=== PATIENT | female | born 1985 | race Caucasian/White ===

== ENCOUNTER 2018-11-07 08:45 | Inpatient (IN) ==
[2018-11-07] MEDS ORDERED: OXYTOCIN 30 UNITS/500 ML BAG IV PRN (09:33)
[2018-11-07 09:53] LABS: Hematocrit (blood only) 31.7 % (37-47); Hemoglobin 9.6 g/dL (12.0-16.0); Mean Corpuscular Volume 69.2 fL (80-100); Mean Platelet Volume 10.3 fL (7.4-10.4); Platelet Count 184 K/uL (130-400); RDW Standard Deviation 42.4 fL (36.4-46.3); Red Blood Count 4.58 M/uL (4.2-5.4); White Blood Count 8.96 K/uL (4.8-10.8)
[2018-11-07] MEDS: LACTATED RINGER'S 1,000 ML IV PRN ×3 (09:54→18:00)
[2018-11-07] MEDS ORDERED: BUPIVACAINE 0.25% 30 ML VIAL ONE (10:00)
[2018-11-07] MEDS ORDERED: ePHEDrine sulfate 50 MG/ML AMP ONE (10:00)
[2018-11-07] MEDS ORDERED: PENICILLIN G POTASSIUM 6 MU in DEXTROSE 5% 250 ML IV ONE (10:00)
[2018-11-07] MEDS ORDERED: fentaNYL citrate 100 MCG/2 ML VIAL ONE (10:01)
[2018-11-07] MEDS ORDERED: fentaNYL 2MCG/ML ROPIV 1.25MG/ML 100 ML BAG EPI ONE (10:01)
--- NOTE | 2018-11-07 10:18 | Anesthesiology Consultation ---
Date of Service November 07, 2018 Assessment & Plan Chart Review Chart Review: Acceptable Risk for Labor Epidural Consults Requested none ASA ASA2 Proposed Anesthesia Anesthesia Type: Labor Epidural Risk / Benefits Reviewed With: PT / POA / Parent / Guardian, Accepts Plan and Informed Consent Obtained History Height/Weight Height: 1.63 m Weight: 68.946 kg Allergies Allergy/AdvReac Type Severity Reaction Status Date / Time No Known Allergies Allergy Verified 11/07/18 02:21 Medications Home Medications Medication Instructions Recorded Confirmed Last Taken ferrous sulfate [iron] 325 mg PO DAILY 11/07/18 11/07/18 11/05/18 08:00 vit-iron fum-folic ac 1 tab PO DAILY 11/07/18 11/07/18 11/05/18 08:00 [ Vitamin] Active Medications Generic Name Dose Route Start Last Admin Trade Name Freq PRN Reason Stop Dose Admin Lactated Ringer's 1,000 mls @ 125 mls/hr 11/07/18 09:33 11/07/18 09:54 Lr IV 11/09/18 09:32 999 mls/hr .Q8H PRN Administration L&D Protocol Protocol Penicillin G Potassium 6 mu/ 262 mls @ 262 mls/hr 11/07/18 10:00 11/07/18 10:04 Dextrose IV 11/07/18 10:59 262 mls/hr 1000 ONE Administration NPO Date Last Intake of Fluids: 11/07/18 Time Last Intake of Fluids: 10:20 Date Last Intake of Solids: 11/06/18 Time Last Intake of Solids: 21:00 Exercise / Class Metabolic Activity II 4-5 Yardwork/Stairs/Walk up hill Past Surgical History No previous surgical history Past Anesthesia History No Family Hx of Anesthesia Complications No previous anesthesia history History of PONV No Hx of PONV (No previous anesthesia history) and No Hx of Motion Sickness Social History Smoking Status: Never smoker Hx Alcohol Use: No Hx Substance Use: No substance use type: does not use Review of Systems Respiratory: no dyspnea Cardiovascular: no chest pain Gastrointestinal: + nausea and + vomiting Physical Exam Vital Signs Last Vital Signs Temp 36.7 C 11/07/18 08:52 Pulse 88 11/07/18 08:52 Resp 20 11/07/18 08:52 BP 131/80 11/07/18 08:52 ENMT Mouth: no TMJ abnormality and no TMJ clicking Thyromental Distance: < 3.5 Finger Breadths Mallampati Class: III Neck normal visual inspection; neck extension not limited Respiratory Auscultation: lungs clear to auscultation bilaterally Cardiovascular Rate/Rhythm: regular rate and regular rhythm Heart Sounds: no murmur Vessels: no carotid bruit Psychiatric Orientation: alert and oriented x 3 Testing Laboratory Results 11/07/18 09:44
[2018-11-07 10:34] LABS: Mean Corpuscular Hgb Conc 30.3 g/dL (32-36)
[2018-11-07] MEDS ORDERED: ONDANSETRON INJ 2 MG/ML 2 ML VIAL IV PRN (10:52)
[2018-11-07] MEDS ORDERED: NALBUPHINE HCL INJ 10 MG/ML AMP IV PRN (10:52)
[2018-11-07] MEDS ORDERED: NALOXONE HCL 1 MG in SODIUM CHLORIDE 0.9% 1000ML 1,000 ML IV PRN (10:52)
[2018-11-07] MEDS ORDERED: ePHEDrine sulfate 50 MG/ML AMP IV PRN (10:52)
[2018-11-07] MEDS ORDERED: NALOXONE HCL 0.4 MG/1 ML VIAL/CARP IV PRN (10:52)
[2018-11-07] MEDS ORDERED: PROMETHAZINE HCL 12.5 MG in SODIUM CHLORIDE 0.9% 50 ML IV PRN (10:52)
[2018-11-07] MEDS ORDERED: DiphenhydrAMINE HCL 50 MG/ML VIAL IV PRN (10:52)
[2018-11-07] MEDS: fentaNYL 2MCG/ML ROPIV 1.25MG/ML 100 ML BAG EPI PRN ×2 (11:04→18:15)
[2018-11-07] MEDS: PENICILLIN G POTASSIUM 3 MU in DEXTROSE 5% 100 ML IV PRN ×3 (13:49→22:07)
--- NOTE | 2018-11-07 20:46 | Labor Progress Brief Note ---
Date of Service November 07, 2018 Subjective Comfortable with epidural. Accepts AROM. Assessment & Plan (1) Normal labor and delivery: Received GBS abx. Continue current management. Present on Admission?: Yes Physical Exam Physical Exam: FHT Cat 1 [place] Q5 irregular Cvx 8.5/100/0 AROM clear fluid Results & Data Vital Signs (Past 12 Hours) Vital Signs Temp Pulse Resp BP Pulse Ox 11/07/18 20:42 104 H 97 11/07/18 20:37 103 H 97 11/07/18 20:32 102 H 97 11/07/18 20:30 36.7 C 103 H 123/63 11/07/18 20:27 103 H 96 11/07/18 20:22 101 H 97 11/07/18 20:17 103 H 97 11/07/18 20:15 112 H 129/68 11/07/18 20:12 104 H 96 11/07/18 20:07 98 H 97 11/07/18 20:02 101 H 97 11/07/18 20:00 105 H 18 126/73 11/07/18 19:57 98 H 94 11/07/18 19:52 92 H 95 11/07/18 19:47 94 H 96 11/07/18 19:45 95 H 111/59 L 11/07/18 19:42 98 H 96 11/07/18 19:37 106 H 99 11/07/18 19:32 109 H 98 11/07/18 19:31 112 H 18 112/58 L 11/07/18 19:27 111 H 96 11/07/18 19:22 109 H 97 11/07/18 19:17 104 H 95 11/07/18 19:16 100 H 94 11/07/18 19:15 112 H 92/54 L 11/07/18 19:12 97 H 95 11/07/18 19:07 110 H 96 11/07/18 19:02 108 H 95 11/07/18 19:01 106 H 104/58 L 11/07/18 19:00 36.9 C 18 11/07/18 18:57 109 H 97 11/07/18 18:52 103 H 96 11/07/18 18:47 96 H 95 11/07/18 18:46 106 H 99/54 L 11/07/18 18:42 98 H 96 11/07/18 18:37 99 H 96 11/07/18 18:32 104 H 106/55 L 95 11/07/18 18:30 16 11/07/18 18:27 105 H 95 11/07/18 18:22 99 H 95 11/07/18 18:17 98 H 95 11/07/18 18:16 102 H 103/58 L 11/07/18 18:12 105 H 95 11/07/18 18:10 96 H 94 11/07/18 18:07 111 H 96 11/07/18 18:02 109 H 96 11/07/18 18:00 102 H 18 104/57 L 11/07/18 17:57 113 H 96 11/07/18 17:52 108 H 96 11/07/18 17:47 110 H 105/59 L 96 11/07/18 17:42 108 H 96 11/07/18 17:37 113 H 97 11/07/18 17:32 104 H 96 11/07/18 17:30 105 H 101/59 L 11/07/18 17:27 110 H 96 11/07/18 17:26 16 11/07/18 17:22 105 H 96 11/07/18 17:17 104 H 97 11/07/18 17:16 112 H 108/56 L 11/07/18 17:12 93 H 94 11/07/18 17:11 92 H 94 11/07/18 17:07 96 H 95 11/07/18 17:04 93 H 94 11/07/18 17:02 95 H 95 11/07/18 17:00 93 H 18 105/56 L 11/07/18 16:57 99 H 95 11/07/18 16:52 98 H 95 11/07/18 16:48 97 H 94 11/07/18 16:47 103 H 95 11/07/18 16:45 100 H 98/55 L 11/07/18 16:42 97 H 95 11/07/18 16:37 107 H 96 11/07/18 16:32 104 H 96 11/07/18 16:31 100 H 106/56 L 11/07/18 16:30 16 11/07/18 16:27 98 H 97 11/07/18 16:22 102 H 98 11/07/18 16:21 91 H 94 11/07/18 16:17 88 112/64 95 11/07/18 16:15 92 H 110/57 L 11/07/18 16:12 86 95 11/07/18 16:07 94 H 97 11/07/18 16:06 91 H 94 11/07/18 16:02 102 H 96 11/07/18 16:01 88 121/60 11/07/18 16:00 16 11/07/18 15:57 90 94 11/07/18 15:52 90 94 11/07/18 15:49 92 H 94 11/07/18 15:47 90 95 11/07/18 15:46 93 H 116/59 L 11/07/18 15:44 97 H 94 11/07/18 15:42 90 95 11/07/18 15:37 91 H 97 11/07/18 15:32 92 H 115/61 98 11/07/18 15:30 16 11/07/18 15:27 85 94 11/07/18 15:26 88 94 11/07/18 15:22 87 95 11/07/18 15:21 87 94 11/07/18 15:17 85 94 11/07/18 15:15 91 H 16 105/56 L 11/07/18 15:13 89 94 11/07/18 15:12 86 94 11/07/18 15:07 85 95 11/07/18 15:05 88 94 11/07/18 15:02 90 96 11/07/18 15:00 88 105/55 L 11/07/18 14:57 87 97 11/07/18 14:52 96 H 99 11/07/18 14:50 36.9 C 18 11/07/18 14:47 104 H 103/53 L 98 11/07/18 14:42 90 96 11/07/18 14:37 92 H 96 11/07/18 14:32 89 96 11/07/18 14:30 100 H 99/58 L 11/07/18 14:27 90 95 11/07/18 14:22 87 95 11/07/18 14:17 88 95 11/07/18 14:15 90 94/53 L 11/07/18 14:12 94 H 95 11/07/18 14:07 89 96 11/07/18 14:02 95 H 97 11/07/18 14:00 96 H 16 97/59 L 11/07/18 13:57 94 H 97 11/07/18 13:52 96 H 98 11/07/18 13:47 96 H 97 11/07/18 13:45 89 100/61 11/07/18 13:42 92 H 97 11/07/18 13:37 92 H 96 11/07/18 13:32 83 95 11/07/18 13:30 93 H 16 86/50 L 94 11/07/18 13:27 80 95 11/07/18 13:25 79 94 11/07/18 13:22 78 94 11/07/18 13:19 87 94 11/07/18 13:17 86 95 11/07/18 13:15 87 90/55 L 11/07/18 13:14 85 94 11/07/18 13:12 84 95 11/07/18 13:08 83 94 11/07/18 13:06 86 95 11/07/18 13:01 84 95 11/07/18 13:00 86 16 94/52 L 11/07/18 12:56 88 95 11/07/18 12:55 83 114/72 11/07/18 12:51 73 96 11/07/18 12:50 80 108/69 11/07/18 12:46 76 95 11/07/18 12:45 87 110/64 11/07/18 12:41 78 95 11/07/18 12:39 77 107/67 11/07/18 12:37 78 94 11/07/18 12:36 76 94 11/07/18 12:34 75 109/69 11/07/18 12:32 81 94 11/07/18 12:31 81 94 11/07/18 12:30 73 16 110/70 11/07/18 12:26 84 96 11/07/18 12:25 80 111/69 11/07/18 12:21 83 112/70 96 11/07/18 12:16 75 115/72 97 11/07/18 12:11 79 96 11/07/18 12:10 80 114/64 11/07/18 12:06 77 97 11/07/18 12:01 67 111/72 95 11/07/18 12:00 16 11/07/18 11:56 82 97 11/07/18 11:55 74 105/69 06/02/19 11:53 72 94 11/07/18 11:51 79 96 11/07/18 11:50 71 109/70 11/07/18 11:46 68 96 11/07/18 11:45 85 107/69 11/07/18 11:41 68 96 11/07/18 11:40 63 108/70 11/07/18 11:36 71 96 11/07/18 11:35 66 103/55 L 11/07/18 11:31 69 123/63 97 11/07/18 11:30 16 11/07/18 11:26 71 126/61 97 11/07/18 11:21 77 98 11/07/18 11:19 71 107/68 11/07/18 11:16 69 97 11/07/18 11:15 36.6 C 16 11/07/18 11:12 74 104/67 11/07/18 11:11 78 99 11/07/18 11:09 78 104/65 11/07/18 11:06 78 104/61 98 11/07/18 11:01 79 119/57 L 98 11/07/18 10:57 75 105/59 L 11/07/18 10:56 85 98 11/07/18 10:54 81 107/62 11/07/18 10:51 88 106/57 L 98 11/07/18 10:49 96 H 133/62 11/07/18 10:46 89 118/71 98 11/07/18 10:41 91 H 108/71 100 11/07/18 10:37 36.7 C 20 11/07/18 10:36 98 H 100 11/07/18 10:31 99 H 100 11/07/18 10:26 99 H 99 11/07/18 08:52 36.7 C 88 20 131/80
--- NOTE | 2018-11-08 00:15 | Procedure Note ---
Vaginal Delivery Summary Date of Service November 08, 2018
--- NOTE | 2018-11-08 00:18 | Procedure Note ---
Vaginal Delivery Summary Date of Service November 08, 2018 Patient pushed to deliver a viable male infant in OA position. A brief shoulder dystocia was resolved with Sussy and suprapubic pressure. The shoulders delivered followed by the rest of the baby easily. The cord was doubly clamped and cut, and the baby was taken to the warmer. It was noted to be moving all extremities well, and making respiratory efforts. The placenta delivered S/I/3VC. A 2nd degree laceration was repaired with vicryl suture in the usual manner. Fundus firm and lochia minimal after delivery.
[2018-11-08] MEDS ORDERED: DIPHTHERIA/TETANUS/PERTUSSIS 0.5 ML SYR/VIAL IM ONE (02:30)
[2018-11-08] MEDS ORDERED: ACETAMINOPHEN 325 MG TAB PO PRN (02:30)
[2018-11-08] MEDS ORDERED: BENZOCAINE 20% AER SPR 82.5 GM CAN EXT PRN (02:30)
[2018-11-08] MEDS ORDERED: HYDROCORTISONE ACETATE 25 MG SUPP PR PRN (02:30)
[2018-11-08] MEDS ORDERED: SUPERCREAM 0.870% 15 GM JAR EXT PRN (02:30)
[2018-11-08] MEDS ORDERED: OXYCODONE/ACETAMINOPHEN 5mg/325mg TAB PO PRN (02:30)
[2018-11-08] MEDS ORDERED: LACTATED RINGER'S 1,000 ML IV SCH (02:30)
--- NOTE | 2018-11-08 06:41 | Obstetrical Progress Note ---
Date of Service November 08, 2018 Assessment & Plan (1) Normal labor and delivery: Octavio is a 33yo F who presented at 40+3 now s/p PPD#1 - GBS+, O+, RI - Feels well today. Has not yet tried walking around, eating, or voiding. - Pain well controlled with ibuprofen 600mg Q4H PRN. - Routine care - After discharge will have [address] Walters. Subjective Ambulation: limited ambulation (has not been out of bed yet) Voiding: voiding difficulty (has not attempted to void since delivery last night) Passing Gas:: Yes Diet Tolerance:: regular diet (has not eaten yet) Lochia:: Moderate Feeding Type:: breast feeding (with bottle supplement) Current Pain Level(1-10): 0 Review of Systems Denies fever, chills, sweats Denies shortness of breath, difficulty breathing, chest pain, palpitations, chest pressure. Denies breast pain. Denies dysuria. Denies headache. Physical Exam Vital Signs (Past 24 Hours) Last Vital Signs Temp 36.8 C 11/08/18 03:00 Pulse 89 11/08/18 03:00 Resp 18 11/08/18 03:00 BP 110/65 11/08/18 03:00 Pulse Ox 98 11/08/18 03:00 General: Alert, oriented. No acute distress. Cardiac: Regular rate and rhythm, no murmurs/rubs/gallops. Respiratory: Clear to auscultation anterior and posteriorly, no wheezes/rales/rhonchi. No increased work of breathing. Symmetrical chest rise. No respiratory distress. Abdomen: Soft, nontender, nondistended. Bowel sounds present. Uterus: Uterine fundus firm, palpable at umbilicus. Lower Extremities: No lower extremity edema or swelling. No deep calf pain. Maciel's negative bilaterally. Resident Activity Tracking Resident Involvement: Resident Care Provided Care Provided: Adult Hospital Medicine
[2018-11-08] MEDS: IBUPROFEN 600 MG TAB PO PRN ×2 (06:50→20:57)
[2018-11-08] MEDS: PRENATAL VITAMIN 1 TAB PO SCH (08:43)
[2018-11-08] MEDS: DOCUSATE SODIUM 100 MG CAP PO SCH ×2 (08:43→20:57)
--- NOTE | 2018-11-08 09:10 | Anesthesiology Progress Note ---
Date of Service November 08, 2018 Anesthesia Post Procedure Vital Signs Vital Signs: Temp Pulse Pulse Resp BP BP Pulse Ox 11/08/18 08:00 36.6 C 82 18 98/52 L 98 11/08/18 03:00 36.8 C 89 18 110/65 98 11/08/18 02:07 86 114/62 11/08/18 01:52 78 127/75 11/08/18 01:37 65 121/74 11/08/18 01:22 75 126/87 11/08/18 01:07 73 18 126/74 11/08/18 00:52 80 18 129/76 11/08/18 00:40 96 H 143/85 H 11/08/18 00:37 18 11/08/18 00:33 83 116/58 L 11/08/18 00:22 18 11/08/18 00:07 36.4 C L 92 H 18 112/71 100 11/08/18 00:02 103 H 100 11/08/18 00:00 99 H 119/72 11/07/18 23:57 110 H 100 11/07/18 23:52 124 H 100 11/07/18 23:47 108 H 98 11/07/18 23:45 108 H 105/52 L 11/07/18 23:42 117 H 99 11/07/18 23:37 106 H 100 11/07/18 23:32 106 H 100 11/07/18 23:27 102 H 98 11/07/18 23:22 111 H 99 11/07/18 23:19 113 H 93 11/07/18 23:17 105 H 100 11/07/18 23:12 108 H 98 11/07/18 23:10 101 H 92 11/07/18 23:07 101 H 96 11/07/18 23:02 103 H 148/64 H 96 11/07/18 23:01 101 H 94 11/07/18 22:57 111 H 98 11/07/18 22:52 111 H 100 11/07/18 22:47 95 H 138/75 99 11/07/18 22:42 99 H 97 11/07/18 22:37 98 H 96 11/07/18 22:32 101 H 97 11/07/18 22:31 128/66 11/07/18 22:30 101 H 116/66 11/07/18 22:27 99 H 97 11/07/18 22:22 104 H 99 11/07/18 22:17 96 H 99 11/07/18 22:15 93 H 123/62 11/07/18 22:12 96 H 97 11/07/18 22:07 95 H 97 11/07/18 22:02 110 H 133/56 L 98 11/07/18 21:57 104 H 97 11/07/18 21:52 101 H 97 11/07/18 21:47 97 H 96 11/07/18 21:42 100 H 97 11/07/18 21:37 101 H 97 11/07/18 21:32 105 H 144/60 H 97 11/07/18 21:27 99 H 97 11/07/18 21:22 97 H 97 11/07/18 21:17 101 H 98 11/07/18 21:12 100 H 96 11/07/18 21:07 104 H 96 11/07/18 21:02 110 H 97 11/07/18 21:01 101 H 133/70 11/07/18 20:57 103 H 96 11/07/18 20:52 103 H 97 11/07/18 20:47 105 H 98 11/07/18 20:45 101 H 127/67 11/07/18 20:42 104 H 97 11/07/18 20:37 103 H 97 11/07/18 20:32 102 H 97 11/07/18 20:30 36.7 C 103 H 123/63 11/07/18 20:27 103 H 96 11/07/18 20:22 101 H 97 11/07/18 20:17 103 H 97 11/07/18 20:15 112 H 129/68 11/07/18 20:12 104 H 96 11/07/18 20:07 98 H 97 11/07/18 20:02 101 H 97 11/07/18 20:00 105 H 18 126/73 11/07/18 19:57 98 H 94 11/07/18 19:52 92 H 95 11/07/18 19:47 94 H 96 11/07/18 19:45 95 H 111/59 L 11/07/18 19:42 98 H 96 11/07/18 19:37 106 H 99 11/07/18 19:32 109 H 98 11/07/18 19:31 112 H 18 112/58 L 11/07/18 19:27 111 H 96 11/07/18 19:22 109 H 97 11/07/18 19:17 104 H 95 11/07/18 19:16 100 H 94 11/07/18 19:15 112 H 92/54 L 11/07/18 19:12 97 H 95 11/07/18 19:07 110 H 96 11/07/18 19:02 108 H 95 11/07/18 19:01 106 H 104/58 L 11/07/18 19:00 36.9 C 18 11/07/18 18:57 109 H 97 11/07/18 18:52 103 H 96 11/07/18 18:47 96 H 95 11/07/18 18:46 106 H 99/54 L 11/07/18 18:42 98 H 96 11/07/18 18:37 99 H 96 11/07/18 18:32 104 H 106/55 L 95 11/07/18 18:30 16 11/07/18 18:27 105 H 95 11/07/18 18:22 99 H 95 11/07/18 18:17 98 H 95 11/07/18 18:16 102 H 103/58 L 11/07/18 18:12 105 H 95 11/07/18 18:10 96 H 94 11/07/18 18:07 111 H 96 11/07/18 18:02 109 H 96 11/07/18 18:00 102 H 18 104/57 L 11/07/18 17:57 113 H 96 11/07/18 17:52 108 H 96 11/07/18 17:47 110 H 105/59 L 96 11/07/18 17:42 108 H 96 11/07/18 17:37 113 H 97 11/07/18 17:32 104 H 96 11/07/18 17:30 105 H 101/59 L 11/07/18 17:27 110 H 96 11/07/18 17:26 16 11/07/18 17:22 105 H 96 11/07/18 17:17 104 H 97 11/07/18 17:16 112 H 108/56 L 11/07/18 17:12 93 H 94 11/07/18 17:11 92 H 94 11/07/18 17:07 96 H 95 11/07/18 17:04 93 H 94 11/07/18 17:02 95 H 95 11/07/18 17:00 93 H 18 105/56 L 11/07/18 16:57 99 H 95 11/07/18 16:52 98 H 95 11/07/18 16:48 97 H 94 11/07/18 16:47 103 H 95 11/07/18 16:45 100 H 98/55 L 11/07/18 16:42 97 H 95 11/07/18 16:37 107 H 96 11/07/18 16:32 104 H 96 11/07/18 16:31 100 H 106/56 L 11/07/18 16:30 16 11/07/18 16:27 98 H 97 11/07/18 16:22 102 H 98 11/07/18 16:21 91 H 94 11/07/18 16:17 88 112/64 95 11/07/18 16:15 92 H 110/57 L 11/07/18 16:12 86 95 11/07/18 16:07 94 H 97 11/07/18 16:06 91 H 94 11/07/18 16:02 102 H 96 11/07/18 16:01 88 121/60 11/07/18 16:00 16 11/07/18 15:57 90 94 11/07/18 15:52 90 94 11/07/18 15:49 92 H 94 11/07/18 15:47 90 95 11/07/18 15:46 93 H 116/59 L 11/07/18 15:44 97 H 94 11/07/18 15:42 90 95 11/07/18 15:37 91 H 97 11/07/18 15:32 92 H 115/61 98 11/07/18 15:30 16 11/07/18 15:27 85 94 11/07/18 15:26 88 94 11/07/18 15:22 87 95 11/07/18 15:21 87 94 11/07/18 15:17 85 94 11/07/18 15:15 91 H 16 105/56 L 11/07/18 15:13 89 94 11/07/18 15:12 86 94 11/07/18 15:07 85 95 11/07/18 15:05 88 94 11/07/18 15:02 90 96 11/07/18 15:00 88 105/55 L 11/07/18 14:57 87 97 11/07/18 14:52 96 H 99 11/07/18 14:50 36.9 C 18 11/07/18 14:47 104 H 103/53 L 98 11/07/18 14:42 90 96 11/07/18 14:37 92 H 96 11/07/18 14:32 89 96 11/07/18 14:30 100 H 99/58 L 11/07/18 14:27 90 95 11/07/18 14:22 87 95 11/07/18 14:17 88 95 11/07/18 14:15 90 94/53 L 11/07/18 14:12 94 H 95 11/07/18 14:07 89 96 11/07/18 14:02 95 H 97 11/07/18 14:00 96 H 16 97/59 L 11/07/18 13:57 94 H 97 11/07/18 13:52 96 H 98 11/07/18 13:47 96 H 97 11/07/18 13:45 89 100/61 11/07/18 13:42 92 H 97 11/07/18 13:37 92 H 96 11/07/18 13:32 83 95 11/07/18 13:30 93 H 16 86/50 L 94 11/07/18 13:27 80 95 11/07/18 13:25 79 94 11/07/18 13:22 78 94 11/07/18 13:19 87 94 11/07/18 13:17 86 95 11/07/18 13:15 87 90/55 L 11/07/18 13:14 85 94 11/07/18 13:12 84 95 11/07/18 13:08 83 94 11/07/18 13:06 86 95 11/07/18 13:01 84 95 11/07/18 13:00 86 16 94/52 L 11/07/18 12:56 88 95 11/07/18 12:55 83 114/72 11/07/18 12:51 73 96 11/07/18 12:50 80 108/69 11/07/18 12:46 76 95 11/07/18 12:45 87 110/64 11/07/18 12:41 78 95 11/07/18 12:39 77 107/67 11/07/18 12:37 78 94 11/07/18 12:36 76 94 11/07/18 12:34 75 109/69 11/07/18 12:32 81 94 11/07/18 12:31 81 94 11/07/18 12:30 73 16 110/70 11/07/18 12:26 84 96 11/07/18 12:25 80 111/69 11/07/18 12:21 83 112/70 96 11/07/18 12:16 75 115/72 97 11/07/18 12:11 79 96 11/07/18 12:10 80 114/64 11/07/18 12:06 77 97 11/07/18 12:01 67 111/72 95 11/07/18 12:00 16 11/07/18 11:56 82 97 11/07/18 11:55 74 105/69 11/07/18 11:53 72 94 11/07/18 11:51 79 96 11/07/18 11:50 71 109/70 11/07/18 11:46 68 96 11/07/18 11:45 85 107/69 11/07/18 11:41 68 96 11/07/18 11:40 63 108/70 11/07/18 11:36 71 96 11/07/18 11:35 66 103/55 L 11/07/18 11:31 69 123/63 97 11/07/18 11:30 16 11/07/18 11:26 71 126/61 97 11/07/18 11:21 77 98 11/07/18 11:19 71 107/68 11/07/18 11:16 69 97 11/07/18 11:15 36.6 C 16 11/07/18 11:12 74 104/67 11/07/18 11:11 78 99 11/07/18 11:09 78 104/65 11/07/18 11:06 78 104/61 98 11/07/18 11:01 79 119/57 L 98 11/07/18 10:57 75 105/59 L 11/07/18 10:56 85 98 11/07/18 10:54 81 107/62 11/07/18 10:51 88 106/57 L 98 11/07/18 10:49 96 H 133/62 11/07/18 10:46 89 118/71 98 11/07/18 10:41 91 H 108/71 100 11/07/18 10:37 36.7 C 20 11/07/18 10:36 98 H 100 11/07/18 10:31 99 H 100 11/07/18 10:26 99 H 99 Transfer of Care Handoff Completed per policy Notes Mental Status: alert / awake / arousable Nausea / Vomiting: adequately controlled Pain: adequately controlled Airway Patency, RR, SpO2: stable & adequate BP & HR: stable & adequate Hydration State: stable & adequate Neuraxial Anesthesia: was administered and sensory block resolved Anesthetic Complications: no major complications apparent
[2018-11-09 06:32] LABS: Hemoglobin 8.1 g/dL (12.0-16.0); Mean Corpuscular Volume 70.1 fL (80-100); Mean Platelet Volume 9.6 fL (7.4-10.4); Platelet Count 155 K/uL (130-400); RDW Coefficient of Variation 17.6 % (11.5-14.5); RDW Standard Deviation 44.6 fL (36.4-46.3); Red Blood Count 3.85 M/uL (4.2-5.4); White Blood Count 8.06 K/uL (4.8-10.8)
--- NOTE | 2018-11-09 06:39 | Obstetrical Progress Note ---
Date of Service <Jonas Garcia MD - Last Filed: 11/09/18 06:39> November 09, 2018 Assessment & Plan <Jonas Garcia MD - Last Filed: 11/09/18 06:39> (1) Normal labor and delivery: Octavio is a 33yo F who presented at 40+3 now s/p PPD#2 - GBS+, O+, [place] - Feels well today. Ambulating well, voiding well. - with bottle supplement, no concerns - Pain well controlled with ibuprofen 600mg Q4H PRN. - Routine care - After discharge will have [address] Walters. Subjective <Jonas Garcia MD - Last Filed: 11/09/18 06:39> Ambulation: ambulating normally Voiding: no voiding problems Passing Gas:: Yes Diet Tolerance:: regular diet Lochia:: Small Feeding Type:: breast feeding (w/ bottle supplement) Current Pain Level(1-10): 5 (improved with rx) Review of Systems Denies fever, chills, sweats Denies shortness of breath, difficulty breathing, chest pain, palpitations, chest pressure. Denies breast pain. Denies dysuria. Denies headache. Physical Exam <Jonas Garcia MD - Last Filed: 11/09/18 06:39> Vital Signs (Past 24 Hours) Last Vital Signs Temp 36.6 C 11/09/18 04:30 Pulse 82 11/09/18 04:30 Resp 20 11/09/18 04:30 BP 117/74 11/09/18 04:30 Pulse Ox 99 11/08/18 16:27 General: Alert, oriented. No acute distress. Cardiac: Regular rate and rhythm, no murmurs/rubs/gallops. Respiratory: Clear to auscultation anterior and posteriorly, no wheezes/rales/rhonchi. No increased work of breathing. Symmetrical chest rise. No respiratory distress. Abdomen: Soft, nontender, nondistended. Bowel sounds present. Uterus: Uterine fundus firm, palpable 2cm below umbilicus. Lower Extremities: No lower extremity edema or swelling. No deep calf pain. Maciel's negative bilaterally. <Kaley Momin MD, FACOG - Last Filed: 11/09/18 07:48> Co-Signing Physician Notes Resident Physician Supervision Note: I interviewed and examined the patient. Discussed with Dr. Jonas Garcia PGY 1 and agree with findings and plan as documented in the note. Any exceptions or clarifications are listed here: [None] Documented By: Kaley Moimn MD, FACOG Resident Activity Tracking <Jonas Garcia MD - Last Filed: 11/09/18 06:39> Resident Involvement: Resident Care Provided Care Provided: Adult Hospital Medicine
[2018-11-09] MEDS: PRENATAL VITAMIN 1 TAB PO SCH (08:44)
[2018-11-09] MEDS: DOCUSATE SODIUM 100 MG CAP PO SCH (08:44)
== END 2018-11-09 19:06 | disposition home or self-care (01) | DRG 807 ==
LOC: OPB 08:45 → 4S1 08:47 → 4S2 11-08 02:32